=== PATIENT | female | born 1945 | race Caucasian/White ===

== ENCOUNTER 2017-12-19 13:16 | Emergency (ER) | payer OTHER ==
[~2017-12-19] VITALS: Ht 157.5 cm; Wt 70.3 kg
[2017-12-19] MEDS ORDERED: LEXAPRO 10 MG T10 M2 PO (13:31)
[2017-12-19] MEDS ORDERED: VITAMINC500 PO (13:31)
[2017-12-19] MEDS ORDERED: METFORMIN HCL500 MG PO (13:31)
[2017-12-19] MEDS ORDERED: ZOCOR20 MG PO (13:31)
[2017-12-19] MEDS ORDERED: VITAMIN B-12500 MCG PO (13:32)
[2017-12-19] MEDS ORDERED: OSTERA TABLET1 EAC1 PO (13:32)
[2017-12-19 14:14] VITALS: BP 132/74
== END 2017-12-19 14:14 | disposition home or self-care (01) ==
LOC: M.ERS 13:16
DX: T18.2XXA Foreign body in stomach, initial encounter (principal); E11.9 Type 2 diabetes mellitus without complications; I10 Essential (primary) hypertension; E78.00 Pure hypercholesterolemia, unspecified; X58.XXXA Exposure to other specified factors, initial encounter; Y93.89 Activity, other specified; Y92.89 Other specified places as the place of occurrence of the external cause; Y99.8 Other external cause status